=== PATIENT | female | born 1960 | race Two or more races ===

== ENCOUNTER → 2020-06-27 | Outpatient (CLI) | payer MEDICAID ==
[~2020-06-27] VITALS: Ht 152.4 cm; Wt 61.2 kg
[~2020-06-27] MED LIST: ADENOSINE 51 MG in GIVE UN-DILUTED 0 ML IV STA
[2020-06-27 09:05] VITALS: BP 186/90
== END | disposition home or self-care (01) ==
LOC: EDUNIT# 07:30 → XY 07:57
PROVIDERS: ATTEND Internal Medicine
DX: R00.2 Palpitations (principal)
CPT/HCPCS: 78452; 93017; A9500; J0153

== ENCOUNTER → 2022-12-31 | Outpatient (CLI) | payer OTHER, MEDICAID | END | disposition home or self-care (01) | LOC: XYW 10:52 | PROVIDERS: ATTEND Internal Medicine | DX: I08.0 Rheumatic disorders of both mitral and aortic valves (principal); I20.9 Angina pectoris, unspecified; R07.9 Chest pain, unspecified | CPT/HCPCS: 93306 ==

== ENCOUNTER → 2023-04-17 | Outpatient (CLI) | payer OTHER, MEDICAID ==
[~2023-04-17] VITALS: Ht 152.4 cm; Wt 59.0 kg
[2023-04-17] MEDS: ADENOSINE 50 MG in GIVE UN-DILUTED 0 ML IV ONE (09:19)
== END | disposition home or self-care (01) ==
LOC: XYW 07:54
PROVIDERS: ATTEND Internal Medicine
DX: I20.9 Angina pectoris, unspecified (principal); I10 Essential (primary) hypertension; E11.9 Type 2 diabetes mellitus without complications
CPT/HCPCS: 78452; 93017; A9500; J0153

== ENCOUNTER 2024-12-09 23:17 | Emergency (ER) | payer OTHER, MEDICAID ==
[~2024-12-09] VITALS: Ht 149.9 cm; Wt 61.3 kg
--- NOTE | 2024-12-09 23:38 | ED.PDOC ---
HPI Allergic reaction HPI Comments 64-year-old female who came to ER for allergic reaction. Patient has been having facial swelling since this morning. Benadryl taken has offered slight relief. Also complaining of facial pruritus. Denies any throat pain, throat swelling, or shortness of breath. Patient is saturating 96% on room air, with a blood pressure of 207/91 mm Hg. Patient did not take her evening dose of metoprolol. Patient reports similar symptoms several weeks ago while visiting [facility] which resolved after using some ointments. REVIEW OF SYSTEMS: General: No fever, no chills, or fatigue HEENT: No sore throat, no earache, no congestion, no neck pain. Cardiac: No chest pain. No palpitations. Lungs: No shortness of breath, no cough. GI: No nausea, no vomiting, no diarrhea, no constipation, no abdominal pain : No dysuria, frequency, or urgency. No hematuria. Musculoskeletal: No joint pain , no joint swelling, no extremity edema. Skin: No rash, (+) facial swelling and tingling. Neuro: No headache, no dizziness, no weakness EXAM: General: Awake, alert and oriented. No acute distress. Skin: Skin in warm, dry and intact. Appropriate color for ethnicity. No rash. HEENT: The head is normocephalic and atraumatic. Conjunctivae are clear without exudates or hemorrhage. Sclera is non-icteric. EOM are intact. No signs of nystagmus. Mild periorbital edema noted. No tongue swelling, posterior pharyngeal edema. Neck: The neck is supple with normal range of motion. No JVD. Cardiac: Heart rate and rhythm are normal. No murmurs, gallops, or rubs are auscultated. Respiratory: No signs of respiratory distress. Lung sounds are clear in all lobes bilaterally without rales, rhonchi, or wheezes. No stridor. Abdominal: Abdomen is soft, non-tender without distention. Bowel sounds are present and normoactive in all four quadrants. Extremities: Upper and lower extremities are atraumatic in appearance without deformity or edema. Neurological: The patient is awake, alert and oriented to person, place, and time with normal speech. Speech is clear. There is no facial asymmetry. Normal gait. Psychiatric: Appropriate mood and affect. 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 Was a procedure done?: No Differential diagnosis (all) Differential Diagnosis: Anaphylaxis, Angioedema, Urticaria X-Ray, Labs, Meds, VS Vital Signs Date Time Temp Pulse Resp B/P (MAP) Pulse Ox O2 Delivery O2 Flow Rate FiO2 12/10/24 01:19 62 185/82 12/10/24 01:00 62 13 187/78 (114) 95 12/10/24 00:19 65 205/84 12/10/24 00:00 Room Air* 0 21 12/10/24 00:00 97.6 65 13 205/84 (124) 95 97.6 12/09/24 23:18 16 98 Room Air* 0 21 12/09/24 23:18 98.6 69 16 193/82 98 98.6 12/09/24 23:18 98.6 69 16 98 98.6 Lab Test 12/09/24 23:42 Range/Units White Blood Count 5.7 4.4-10.8 10^3/uL Red Blood Count 3.87 L 4.0-5.20 10^6/uL Hemoglobin 11.6 L 12.2-16.2 g/dL Hematocrit 33.6 L 36.0-46.0 % Mean Corpuscular Volume 87.0 80.0-100.0 fL Mean Corpuscular Hemoglobin 29.9 28.0-32.0 pg Mean Corpuscular Hemoglobin Concent 34.3 32.0-36.0 g/dL Red Cell Distribution Width 13.3 11.8-14.3 % Platelet Count 157 140-450 10^3/uL Mean Platelet Volume 9.8 6.9-10.8 fL Neutrophils (%) (Auto) 51.8 37.0-80.0 % Lymphocytes (%) (Auto) 37.6 10.0-50.0 % Monocytes (%) (Auto) 6.6 0.0-12.0 % Eosinophils (%) (Auto) 2.7 0.0-7.0 % Basophils (%) (Auto) 1.3 0.0-2.0 % Neutrophils # (Auto) 3.0 1.6-8.6 10 ^3/uL Lymphocytes # (Auto) 2.1 0.4-5.4 10 ^3/uL Monocytes # (Auto) 0.4 0-1.3 10 ^3/uL Eosinophils # (Auto) 0.2 0-0.8 10 ^3/uL Basophils # (Auto) 0.1 0-0.2 10 ^3/uL Nucleated Red Blood Cells 0.0 % Sodium Level 138 136-145 mmol/L Potassium Level 4.4 3.5-5.1 mmol/L Chloride Level 102 98-107 mmol/L Carbon Dioxide Level 26 20-31 mmol/L Anion Gap 10 5-15 Blood Urea Nitrogen 36 H 9-23 mg/dL Creatinine 1.59 H 0.550-1.02 mg/dL Glomerular Filtration Rate Calc 37 >90 mL/min BUN/Creatinine Ratio 22.6 H 10.0-20.0 Serum Glucose 288 H 74-106 mg/dL Calcium Level 9.7 8.7-10.4 mg/dL Total Bilirubin 0.2 0.2-1.0 mg/dL Aspartate Amino Transferase (AST) 18 13-40 U/L Alanine Aminotransferase (ALT) 12 7-40 U/L Alkaline Phosphatase 80 46-116 U/L Troponin I High Sensitivity 19 </=34 ng/L B-Type Natriuretic Peptide 64.33 0-100 pg/mL Total Protein 7.3 5.7-8.2 g/dL Albumin 4.3 3.2-4.8 g/dL Current Medications Medications (Trade) Dose Ordered Sig/Kirk Route Start Time Stop Time Status Last Admin Metoprolol Tartrate (Lopressor Tablet) 50 mg ONCE ONCE PO 12/10/24 00:15 12/10/24 00:16 DC 12/10/24 00:19 Time of 1ST Reevaluation: 23:33 Reevaluation 1ST: Unchanged Patient Education/Counseling: Need For Follow Up Family Education/Counseling: No Family Present SEPSIS Sepsis Screen Date sepsis recognized/suspect: Dec 09, 2024 Time Sepsis recognized/suspect: 2329 Recent Procedure: No On Antibiotic Therapy: No Respiratory Rate >20: No Heart Rate >90: No Temp<36 C (96.8 F) or >38.3 C: No SBP <90 or MAP <65 mmHG: No New Acute Mental Status Change: No Is the patient on CPAP, BIPAP,: No Physician Orders Chest Xray 1 View (12/09/24 23:35) Blood Pressure (12/10/24 ) Vital Signs Date Time Temp Pulse Resp B/P (MAP) Pulse Ox O2 Delivery O2 Flow Rate FiO2 12/10/24 01:19 62 185/82 12/10/24 01:00 62 13 187/78 (114) 95 12/10/24 00:19 65 205/84 12/10/24 00:00 Room Air* 0 21 12/10/24 00:00 97.6 65 13 205/84 (124) 95 97.6 12/09/24 23:18 16 98 Room Air* 0 21 12/09/24 23:18 98.6 69 16 193/82 98 98.6 12/09/24 23:18 98.6 69 16 98 98.6 Laboratory Tests Test 12/09/24 23:42 White Blood Count 5.7 10^3/uL (4.4-10.8) Departure 1 Departure Time of Disposition: 00:54 Impression: Primary Impression: Hypertension Additional Impressions: Facial swelling Hyperglycemia Disposition: HOME / SELF CARE / HOMELESS Condition: Stable Additional Instructions: INSTRUCCIONES DE JULIAN DE Urgencias Instrucciones: Yolanda atentamente todas las instrucciones proporcionadas en marry paquete. Aunque le hayan dado el julian del Departamento de Emergencias, esto no significa que tenga un "certificado de buena amber". Hoy no se johns realizado ningn destiny gnstico definitivo para gokul sntomas. Es posible que ests en proceso de desarrollar singh enfermedad grave. Es por eso que debe regresar al servicio de urgencias sin falta si presenta algn sntoma nuevo o que empeora (especialmente si gokul sntomas incluyen dolor en el pecho, dificultad para respirar, dolor abdominal, fiebre, dolor de je, confusin, dificultad para yesi o caminar). Cece es muy importante que consulte a un mdico de atencin primaria dentro de los prximos 3 a 5 dominguez para realizar un seguimiento. Si no puede conseguir singh mily, regrese al servicio de urgencias para singh nueva evaluacin. Hoy tuviste singh lectura de presin arterial elevada. La hipertensin no tratada puede tener consecuencias graves. Sin embargo, necesitas singh mily de seguimiento para volver a revisar tu presin arterial y determinar si necesitas tratamiento o no. Haz singh mily con tu proveedor de atencin primaria para esto dentro de la prxima semana. Hinchazn Descripcin general La hinchazn es un aumento del tamao o un cambio en la forma de singh pema del cuerpo. La hinchazn puede ser causada por: Singh acumulacin de fluido corporal. Crecimiento de tejido. Movimiento o posicin anormal del tejido. La mayora de las personas experimentarn hinchazn en algn momento. Cuando hace calor y se johns permanecido de pie o sentado en la misma posicin favian mucho tiempo, se podra notar hinchazn en los pies y los tobillos. Permanecer en la misma posicin favian un tiempo prolongado aumenta el riesgo de hinchazn en la parte inferior de las piernas, los pies o las danyelle. [place] se debe a que la gravedad normalmente hace que los lquidos corporales desciendan por las extremidades. La hinchazn tambin puede deberse a problemas relacionados con el calor. Un ejemplo es el edema por calor al trabajar o estar activo en un ambiente caluroso. El lquido corporal puede acumularse en diferentes tejidos (hinchazn localizada) o afectar a todo el cuerpo (hinchazn generalizada). Las causas de la hinchazn localizada incluyen: Lesin en singh pema especfica del cuerpo. Los hematomas (moretones) causados ??por singh lesin se deben a desgarros en los pequeos vasos sanguneos subcutneos. El sangrado tambin puede afectar la articulacin (hemartrosis) o la pema que amortigua y lubrica la articulacin (bursitis traumtica). La inflamacin puede afectar solo singh pema. O puede afectar grandes reas del cuerpo, nikole la inflamacin que se produce despus de un accidente de trfico. Infeccin. Puede ocurrir en singh articulacin o bajo la piel. Un absceso es singh acumulacin de pus que se forma en el tejido infectado. La celulitis es singh infeccin de la piel que puede causar inflamacin leve o grave. Quemaduras. Pueden causar hinchazn en el lugar de la quemadura o en un alexsandra ms wade alrededor de garcia. Inflamacin que ocurre cuando el tejido se irrita por uso excesivo o movimiento repetido. La hinchazn del tendn y la hinchazn causada por singh serie de pequeos desgarros alrededor de un tendn (tendinosis) pueden ocurrir juntas o por s solas. La hinchazn del saco que amortigua y lubrica la articulacin (bursitis) puede deberse a singh presin prolongada o repetida. Tambin puede deberse a actividades que requieren torsiones repetidas o movimientos articulares rpidos. Picaduras de insectos. La mayora de las picaduras de insectos causan un ligero enrojecimiento o inflamacin. Algunas personas tienen singh reaccin alrgica a la picadura. Presentan leona inflamacin, enrojecimiento y picazn. Otras causas, nikole la hinchazn relacionada con singh estructura en forma de saco con lquido transparente, gloria o pus (quiste), tambin pueden deberse a singh glndula inflamada, nikole singh glndula salival. Las causas de la hinchazn generalizada incluyen: Singh reaccin alrgica. La hinchazn repentina de las danyelle y la kar puede indicar singh reaccin alrgica grave (anafilaxia). Requiere atencin mdica inmediata. Enfermedades autoinmunes, nikole el lupus, la artritis reumatoide y la esclerodermia. Estas enfermedades pueden causar inflamacin cuando el cuerpo produce anticuerpos y otras clulas que atacan y destruyen los tejidos. Medicamentos. Algunos medicamentos alteran la circulacin de los fluidos corporales, lo que causa hinchazn. La hinchazn tambin puede ocurrir nikole consecuencia de singh reaccin alrgica a un medicamento. Problemas circulatorios relacionados con ciertas afecciones mdicas, nikole la enfermedad arterial perifrica, la insuficiencia cardaca, la diabetes o la enfermedad renal. La tromboflebitis causa hinchazn de singh extremidad cuando un cogulo sanguneo interrumpe el flujo sanguneo en singh vena del brazo o la pierna. Lquido que se acumula en el vientre (ascitis) debido a otros problemas, nikole desnutricin, cirrosis o enfermedad heptica. Algunas personas pueden presentar hinchazn nikole reaccin a un tratamiento mdico, procedimiento o ciruga. La hinchazn causada por un tratamiento mdico puede estar relacionada con el procedimiento. O puede deberse a singh sustancia, nikole un tinte, utilizada favian el procedimiento. La hinchazn puede ocurrir en un punto intravenoso (IV) utilizado favian un procedimiento o en un punto IV utilizado para medicamentos administrados en casa. Es normal tener algo de hinchazn en el lugar de la ciruga, nikole la hinchazn del brazo despus de singh mastectoma. El linfedema es la hinchazn que se produce en el alexsandra alrededor de los ganglios linfticos que se chisholm extirpado (por ejemplo, despus de singh ciruga) o lesionado (por ejemplo, despus de tratamientos de radiacin). La hinchazn tambin puede deberse a la fluctuacin de los niveles hormonales en el cuerpo. Algunas mujeres pueden notar hinchazn por retencin de lquidos favian gokul ciclos menstruales. [place] se conoce nikole edema cclico, ya que est relacionado con el ciclo menstrual. Algunas mujeres presentan singh leve hinchazn en las danyelle o los pies favian el embarazo. La hinchazn en los pies puede ser ms evidente en el tercer trimestre del embarazo. La hinchazn generalizada puede ser un signo de un problema relacionado con el embarazo llamado preeclampsia. La hinchazn puede ocurrir cuando los tejidos se mueven de juarez posicin normal, nikole en el hedy de las hernias en el abdomen. La mayora de las veces, la hinchazn es leve y desaparece por s paula. Es posible que ni siquiera sepa qu la caus. El tratamiento en casa suele ser suficiente para aliviar los sntomas leves. Cuidados personales La hinchazn leve suele desaparecer por s paula. El tratamiento en casa puede ayudar a aliviar los sntomas. La hinchazn y el dolor son muy comunes tras singh lesin. Si presenta hinchazn, asegrese de buscar otros sntomas de lesin que podran requerir singh evaluacin mdica. Si tiene singh condicin mdica que pueda causar hinchazn, siga las instrucciones de juarez mdico sobre product applications engineer tratar la hinchazn. Descansa un poco. Proteja la pema dolorida. Suspenda, cambie o descanse de cualquier actividad que pueda causarle dolor o molestias. Eleve el alexsandra si puede. Apoye la pema lesionada o dolorida sobre almohadas mientras aplica hielo y siempre que se siente o se recueste. Intente mantener la pema a la altura del corazn o por encima de garcia para reducir la hinchazn. Sigue movindote. No permanezca sentado ni de pie favian largos perodos. Ejercitar las piernas disminuye el efecto de la gravedad, por lo que la hinchazn disminuye. Cuida lo que comes. Singh dieta baja en sodio puede ayudar a reducir la hinchazn. Mantente hidratado. Casandra muchos lquidos para ayudar a prevenir la hinchazn causada por la deshidratacin. Mantente fresco. Mantenga juarez piel fresca en ambientes clidos. Cundo pedir ayuda favian el autocuidado Llame a un mdico si ocurre alguna de las siguientes situaciones favian el cuidado personal en el hogar: Hinchazn que aumenta o se propaga. Dificultad para respirar nueva o peor. Nueva fiebre. Disminucin de la miccin. Los sntomas ocurren con mayor frecuencia o son ms graves. Ms informacin Alimentacin saludable: consumir menos sodio (yesi Alimentacin saludable: consumir menos sodio en el apndice) Lesiones por uso excesivo Reposo, hielo, compresin y elevacin (RICE) Descripcin general Consumir menos sodio no tiene por qu ser difcil, antony s hay que pensarlo. Hay que hacer ms que simplemente no usar el salero. Al fin y al cabo, javid todos los alimentos contienen sodio de forma natural o nikole ingrediente. La mayor lucinda de sodio en la dieta no es la abdulaziz aadida en la galvez. En general, la mayor lucinda de sodio proviene de los alimentos procesados ??y de los restaurantes. Los alimentos procesados ??incluyen alimentos enlatados, comidas congeladas y alimentos envasados ??nikole galletas y jocelyne fritas. Tambin incluyen mezclas secas, nikole las que se aaden a las hamburguesas o a los f ideos. Puedes comenzar a reducir el sodio en tu dieta: Limitar los alimentos enlatados, preparados y envasados. Limitar los alimentos de los restaurantes. No aadir abdulaziz a los alimentos favian la coccin ni en la galvez. Protein Purification Scientist puedes reducir la cantidad de sodio que consumes? Javid todos los alimentos contienen sodio de forma natural o nikole ingrediente. Puedes seguir estos consejos para limitar tu consumo de sodio. Aprenda a leer las etiquetas de los alimentos. Yolanda las etiquetas para yesi cunto sodio contienen gokul alimentos. Las etiquetas indican la cantidad de sodio en cada porcin. Evite los alimentos con alto contenido de sodio. Los alimentos con alto contenido de sodio incluyen: Carne, pescado y aves ahumados, curados, salados y enlatados. Jamn, tocino, perritos calientes y fiambres. Queso maddy y procesado y algunos tipos de mantequilla de man. Comidas preparadas congeladas. Conservas de verduras y sopas, caldos y consoms. Snacks salados, nikole patatas fritas y galletas. Pepinillos, chucrut, condimentos con alto contenido de abdulaziz y otros condimentos. Estos incluyen salsa para carne, abdulaziz de cebolla, abdulaziz de ajo, mostaza, ktchup y, sobre todo, salsa de soja. Incluso la salsa de soja ligera tiene un alto contenido de sodio. La mayora de las comidas de los restaurantes, especialmente la comida rpida, nikole las jocelyne fritas, las hamburguesas, la pizza y los tacos. Elija alimentos bajos en sodio. Los alimentos con bajo contenido de sodio incluyen: Frutas frescas o congeladas. Verduras frescas o congeladas. Angelina secos sin abdulaziz. Frijoles o lentejas secos, cocidos sin abdulaziz. Pasta, arroz u otros cereales elaborados sin abdulaziz. Panes integrales. Pescado, carne y aves elaborados sin abdulaziz. Galletas o patatas fritas sin abdulaziz. Encuentre formas de cocinar con menos sodio. Aqu hay algunas ideas: Condimente juarez comida con ajo, jugo de limn, cebolla, vinagre, hierbas y especias en lugar de abdulaziz. Lina el salero de la galvez para evitar aadir abdulaziz a tus comidas. Intente utilizar la mitad de la abdulaziz que requiere la receta. Lleve un registro de juarez sodio. Intenta contar los miligramos de sodio en todo lo que comes. Marry mtodo te permite mayor flexibilidad en tu dieta. Si consumes un alimento alto en sodio, puedes equilibrarlo con alimentos muy bajos en sodio favian el bert del da. Si lo deseas, lleva un registro de sodio. Marry te mostrar cunto sodio consumes en singh comida o favian el da. Si padeces insuficiencia cardaca, usa un registro de sodio que tambin te permita registrar tu peso. Revise gokul medicamentos. El sodio puede ser un ingrediente de los medicamentos. Consulte con juarez mdico o farmacutico si los medicamentos recetados que laverne contienen sodio. Yolanda las etiquetas de los medicamentos de venta stevie para yesi si contienen sodio. Si tiene dudas, consulte con un farmacutico. Hazle saber a los dems que ests consumiendo menos sodio. Si no cocina para usted, informe a quienes le ayudan que desea consumir menos sodio. Muestre esta informacin a familiares, amigos, centros para personas mayores u otras organizaciones. Hable con un dietista registrado (RD). Un dietista registrado puede ayudarle a determinar juarez consumo de abdulaziz y a encontrar maneras de reducirlo. Cece puede ensearle a elegir alimentos bajos en abdulaziz al comer fuera y sugerirle recetas y comidas bajas en sodio. 2024 [employer]. [employer], [employer] para cada decisin de amber y el logotipo de [facility] son marcas registradas de [facility], [facility]. Aprenda sobre el nivel alto de azcar en la gloria Qu es el nivel alto de azcar en la gloria? Tu cuerpo convierte los alimentos que consumes en glucosa (azcar), que utiliza para obtener energa. Antony si tu cuerpo no puede utilizar el azcar de inmediato, puede acumularse en la gloria y provocar niveles altos de azcar. Cuando el nivel de azcar en la gloria se mantiene demasiado alto favian mucho tiempo, es posible que tenga diabetes. La diabetes es singh enfermedad que puede causar graves problemas de amber. La buena noticia es que los cambios en el estilo de timoteo pueden ayudarle a recuperar los niveles normales de azcar en gloria y evitar o retrasar la diabetes. Qu causa el nivel alto de azcar en la gloria? El azcar (glucosa) puede acumularse en juarez gloria si: Tiene resistencia a la insulina. No laverne suficiente insulina o se olvida de abigail singh dosis de juarez medicamento para la diabetes. Abigail ciertos medicamentos, nikole esteroides. Cuales son los sntomas? Tener niveles altos de azcar en la gloria puede no causar ningn sntoma. O puede provocar leona sed o leona hambre. Tambin puede orinar con ms frecuencia de lo habitual, tener visin borrosa o perder peso sin proponrselo. Protein Purification Scientist se trata el nivel alto de azcar en la gloria? Puede abigail medidas para bajar juarez nivel de azcar en la gloria si comprende qu lo eleva. Juarez mdico podra recomendarle que aprenda a medir juarez nivel de azcar en la gloria en casa. As podr yesi product applications engineer las enfermedades, el estrs o diferentes tipos de alimentos o medicamentos aumentan o disminuyen juarez nivel de azcar en la gloria. Es posible que se necesiten otras pruebas para yesi si tiene diabetes. Protein Purification Scientist se puede prevenir el nivel alto de azcar en la gloria? Cuida tu peso. Si tienes sobrepeso, perder un poco de peso puede ayudarte. Reducir la grasa alrededor de la cintura es fundamental. Limite la cantidad de caloras, dulces y grasas no saludables que consume. Consulte con juarez mdico si un dietista puede ayudarle. Un dietista certificado puede ayudarle a crear planes de alimentacin que se adapten a juarez estilo de timoteo. Leo al menos 30 minutos de ejercicio javid todos los dominguez de la semana. El ejercicio ayuda a controlar el azcar en la gloria. Cece le ayuda a mantener un peso saludable. Caminar es singh buena opcin. Cece puede realizar otras actividades, nikole correr, nadar, montar en bicicleta, jugar al tenis o practicar deportes de equipo. Si juarez mdico le recet medicamentos, tmelos exactamente nikole se lo indicaron. Llame a juarez mdico si christa que tiene algn problema con gokul medicamentos. Recibir ms informacin sobre los medicamentos especficos que le receta juarez mdico. El seguimiento es fundamental para juarez tratamiento y seguridad. Asegrese de programar y acudir a todas gokul citas, y llame a juarez mdico si tiene algn problema. Cece es recomendable estar al tanto de los resultados de gokul pruebas y llevar singh lista de los medicamentos que laverne. Crditos para aprender sobre el nivel alto de azcar en la gloria Actualizado al: 24 de 2024 Autor: Personal de [employer] Junta de revisin clnica Toda la educacin de [employer] es revisada por un equipo que incluye mdicos, enfermeras, profesionales avanzados, dietistas registrados y otros profesionales de la amber. Comments 64-year-old female with elevated blood pressure, facial swelling. Patient denies any oral swelling, throat swelling, trouble breathing, rash, itching, leg swelling, shortness of breath or chest pain to suggest allergic reaction or cardiac cause Patient's blood pressure improved during the ED observation. There was no neurologic deficit. Reviewed lab results with the patient and daughter at the bedside. Patient's current GFR is at her baseline (no TANYA). Patient is felt stable for discharge home. Advised prompt follow up with primary care provider for re-evaluation. Advised to return to the emergency department with any new, worsening or concerning symptoms. Extensive evaluation was performed in attempt to identify or rule out: (See differential diagnosis section) The following tests were ordered, and results were reviewed by me and discussed with patient: (See diagnostic results section) The following test were independently interpreted by me: N/A I reviewed and agreed with the following test results read by other providers: N/A I reviewed the following notes from the pt's past medical encounters: Encounter for a stress test, 2023 Additional information was gathered from interviewing the following independent historians: Patient's daughter at bedside Decision regarding hospitalization or escalation of hospital level of care: Risks and benefits of admission for further treatment of patient's condition was considered however due to patient's stable condition patient will be discharged to follow up closely or return to care for worsening of condition or inability to follow up. Critical Care Note Critical Care Time?: No Stability Stability form required: No I personally scribed for NICOL CELESTIN MD ([email or web address]) on 12/09/24 at 23:38. Electronically submitted by [place] [place] ([facility]). NICOL CELESTIN MD Dec 09, 2024 23:38
[2024-12-09 23:49] LABS: Hematocrit 33.6 % (36.0-46.0); Hemoglobin 11.6 g/dL (12.2-16.2); Mean Corpuscular Hemoglobin 29.9 pg (28.0-32.0); Mean Corpuscular Volume 87.0 fL (80.0-100.0); Nucleated Red Blood Cells % 0.0 %
[2024-12-10] VITALS: TEMP 97.6
[2024-12-10 00:04] LABS: Alanine Aminotransferase 12 U/L (7-40); Alkaline Phosphatase 80 U/L (46-116); Anion Gap 10 (5-15); BUN/Creatinine Ratio 22.6 (10.0-20.0); Calcium 9.7 mg/dL (8.7-10.4); Carbon Dioxide 26 mmol/L (20-31); Chloride 102 mmol/L (98-107); Potassium 4.4 mmol/L (3.5-5.1); Sodium 138 mmol/L (136-145); Total Protein 7.3 g/dL (5.7-8.2)
[2024-12-10 00:05] LABS: Albumin 4.3 g/dL (3.2-4.8); Bilirubin, Total 0.2 mg/dL (0.2-1.0); Blood Urea Nitrogen 36 mg/dL (9-23); Glucose 288 mg/dL (74-106)
[2024-12-10] MEDS: METOPROLOL TARTRATE 50 MG TAB PO ONE (00:19)
--- NOTE | 2024-12-10 00:30 | DVH ---
CHEST RADIOGRAPH Indication: High blood pressure, facial swelling Technique: Single frontal view of the chest was obtained COMPARISON: None FINDINGS: Lines and Tubes: None Lungs: Clear Pleura: No effusion. No pneumothorax. Cardiomediastinal contours: Unremarkable Bones: Unremarkable IMPRESSION: 1. No acute disease.
[2024-12-10] MEDS ORDERED: SODIUM CHLORIDE 0.9% 1,000 ML IV ONE (00:45)
[2024-12-10 01:00] VITALS: BP 187/78; PULSE 62; RESP 13; O2SAT 95
== END 2024-12-10 01:36 | disposition home or self-care (01) ==
LOC: ER 23:17
DX: I12.9 Hypertensive chronic kidney disease with stage 1 through stage 4 chronic kidney disease, or unspecified chronic kidney disease (principal); N18.9 Chronic kidney disease, unspecified; R22.0 Localized swelling, mass and lump, head; R73.9 Hyperglycemia, unspecified; E78.5 Hyperlipidemia, unspecified; Z88.8 Allergy status to other drugs, medicaments and biological substances
CPT/HCPCS: 36415; 71045; 80053; 83880; 84484; 85025